=== PATIENT | male | born 1965 | race Caucasian/White ===

== ENCOUNTER 2018-05-22 09:56 | Inpatient (IN) | payer MEDICAID ==
[~2018-05-22] VITALS: Ht 165.1 cm; Wt 59.0 kg
[2018-05-22 09:56] VITALS: BP_SYST 96
--- NOTE | 2018-05-22 10:00 | NUR ---
Patient to ER bed 1 to gown for evaluation. Side rails up. Continuing care as primary nurse.
--- NOTE | 2018-05-22 10:10 | NUR ---
ER Dr. Vinson at bedside examining patient.
--- NOTE | 2018-05-22 10:15 | NUR ---
Pt is non-verbal with autism per his caregiver who is at bedside. Caregiver stated 911 was contacted after Pt was found to be hypertensive: PT's VS stable at time of arrival with no s/s of distress. Caregiver denies any nausea/vomiting, or syncope.
[2018-05-22] MEDS ORDERED: NACL 0.9% 1,000 ML IV ONE ×2 (10:30→11:45)
[2018-05-22 10:56] LABS: HEMOGLOBIN 12.7 g/dL (14.0-18.0); MEAN CORPUSCULAR HEMOGLOBIN 25 pg (27-31); MEAN CORPUSCULAR HGB CONC 31 % (32-36); RED CELL DISTRIBUTION WIDTH 17.5 % (9.0-15.0)
[2018-05-22 11:02] LABS: HEMATOCRIT 40.6 % (36-54); MEAN CORPUSCULAR VOLUME 80 fL (79.0-98.0); PLATELET COUNT (AUTO) 280 K/uL (130-430); RED BLOOD CELL COUNT(AUTO) 5.05 MIL/uL (4.2-6.2); WHITE BLOOD COUNT (AUTO) 23.4 K/uL (4.8-10.8)
[2018-05-22 11:19] LABS: INR 1.1 (0.80-1.20); PROTHROMBIN TIME 11.2 SECS (9.5-12.5)
[2018-05-22 11:22] LABS: ANION GAP 11 (5-15); CALCIUM 8.1 mg/dL (8.4-11.0); CHLORIDE 102 mmol/L (98-107); CREATININE 0.96 mg/dL (0.55-1.30); GLUCOSE 150 mg/dL (70-99); POTASSIUM 3.6 mmol/L (3.5-5.1); SODIUM SERUM 135 mmol/L (136-145); UREA NITROGEN, BLOOD 16 mg/dL (8-21)
[2018-05-22 11:24] LABS: GFR AFRICAN AMERICAN 105 mL/min (>90)
[2018-05-22 11:40] LABS: ALANINE AMINOTRANSFERASE 10 U/L (12-78); ALBUMIN 2.6 g/dL (3.4-4.8); ASPARTATE AMINOTRANSFERASE 12 U/L (10-37); FREE T4 (FREE THYROXINE) 0.7 ng/dL (0.6-1.6); TOTAL BILIRUBIN 0.3 mg/dL (0.0-1.0)
[2018-05-22] MEDS ORDERED: PIPERACILLIN/TAZO 3.375 GM in NS 50 ML IV ONE (11:45)
[2018-05-22] MEDS ORDERED: ESCI10TA PO (11:47)
[2018-05-22] MEDS ORDERED: SENN-104 PO (11:47)
[2018-05-22] MEDS ORDERED: VALP250S3 PO (11:47)
[2018-05-22] MEDS ORDERED: METO25TA6 PO (11:47)
[2018-05-22] MEDS ORDERED: TRAZ-218 PO (11:47)
--- NOTE | 2018-05-22 11:47 | NUR ---
[facility] Any prior medication reconciliation on file was reviewed and corrected.
[2018-05-22 11:52] LABS: BAND % (MANUAL) 14 % (0-6); BASOPHILS % (MANUAL) 0 % (0-2); EOSINOPHILS % (MANUAL) 0 % (0-7); LYMPHOCYTES % (MANUAL) 3 % (20-46); MONOCYTES % (MANUAL) 4 % (0-11)
[2018-05-22 11:56] LABS: ALCOHOL, BLOOD < 3 mg/dL (<10)
[2018-05-22 12:30] LABS: BILIRUBIN,URINE 1+ (NEGATIVE); CLARITY/URINE SL HAZY (CLEAR); COLOR,URINE YELLOW (YELLOW); GLUCOSE,URINE NEGATIVE (NEGATIVE); KETONES,URINE TRACE (NEGATIVE); LEUKOCYTE ESTERASE ,URINE 2+ (NEGATIVE); NITRITE, URINE NEGATIVE (NEGATIVE); PH,URINE >=9.0 (5.0-8.0); PROTEIN URINE 2+ (NEGATIVE)
[2018-05-22 12:33] LABS: BLOOD, URINE TRACE (NEGATIVE)
[2018-05-22] MEDS ORDERED: PIPERACILLIN/TAZOBACTAM 3.375 GM/VIAL (ZOSYN) IV ONE (12:53)
[2018-05-22 13:00] LABS: BACTERIA,URINE MANY /HPF (None Seen); WBC,URINE 20-50 /HPF (0-3)
--- NOTE | 2018-05-22 13:10 | NUR ---
Patient will be admitted to care of Dr Crews. Admitted to Medsurg unit. Belongings list completed. Summary report printed. Report will be given at bedside.
--- NOTE | 2018-05-22 13:16 | NUR ---
ADMISSION NOTE Received patient from ER via [facility], received report from JODIE RN. Patient admitted with diagnosis of FECAL IMPACTION. Patient oriented to hospital routine, call light, toileting and safety-patient verbalized understanding.
[2018-05-22 13:20] VITALS: BP_SYST 96
[2018-05-22 13:33] VITALS: BP_SYST 96
--- NOTE | 2018-05-22 15:34 | NUR ---
PATIENT IS MOVED TO ROOM 113B
[2018-05-22 17:00] VITALS: BP_SYST 120
[2018-05-22] MEDS ORDERED: MORPHINE 4 MG/ML INJ. SYRINGE IVP PRN (17:30)
[2018-05-22] MEDS ORDERED: ACETAMINOPHEN 325 MG TABLET PO PRN (17:30)
[2018-05-22] MEDS: PIPERACILLIN/TAZO 3.375/DEX-IS 50 ML IV SCH (17:55)
[2018-05-22] MEDS: D5NS 1,000 ML IV SCH (17:55)
--- NOTE | 2018-05-22 18:01 | NUR ---
PATIENT IS SEEN EATING DINNER; NO SIGNS OF DISTRESS NOTED.
--- NOTE | 2018-05-22 18:52 | NUR ---
CONSULTATION PAGED/CALLED Reason for Consultation: FECAL IMPACTION Person Who was Notified: LAURO Consulting Physician: DR. ARCE; COMPUTER CONSOLE OPERATOR- DR. HINES Ordering Physician: DR. VILLALOBOS
--- NOTE | 2018-05-22 19:45 | NUR ---
INITIAL NOTE AT INITIAL ASSESSMENT, PATIENT IS RESTING IN BED, STABLE, NO SIGNS OF RESPIRATORY DISTRESS. PATIENT IS NONVERBAL. HE SHOWS NO PAIN PER FLACC SCALE. PLAN OF CARE FOR THE EVENING IS COMMUNICATED WITH THE PATIENT. CALL LIGHT IS WITHIN REACH. BED IS LOCKED, ALARMED, AND AT THE LOWEST LEVEL. FALL, SAFETY, AND SEIZURE PRECAUTIONS WILL BE TAKEN THROUGHOUT THE SHIFT.
[2018-05-22] MEDS ORDERED: VALPROIC ACID ORAL SYRUP 250 MG/5 ML UDC PO ONE (21:00)
[2018-05-22] MEDS ORDERED: VALPROIC ACID ORAL SYRUP 250 MG/5 ML UDC PO SCH (21:00)
[2018-05-22] MEDS ORDERED: POLYETHYLENE GLYCOL 3350, 17 GM/ POWD.PACK PO ONE (21:00)
[2018-05-22] MEDS: traZODone HCL 50 MG TABLET (DESYREL) PO SCH (21:26)
[2018-05-22] MEDS: METOPROLOL TARTRATE 25 MG TABLET PO SCH (21:26)
--- NOTE | 2018-05-22 21:43 | NUR ---
NOTE PATIENT WAS ABLE TO TOLERATE PO MEDICATIONS VERY WELL AT THIS TIME. PATIENT IS RESTING IN BED, STABLE, NO SIGNS OF RESPIRATORY DISTRESS. BED IS LOCKED, ALARMED, AND AT THE LOWEST LEVEL.
--- NOTE | 2018-05-22 23:40 | NUR ---
NOTE PATIENT IS RESTING IN BED, STABLE, NO SIGNS OF RESPIRATORY DISTRESS. BED IS LOCKED, ALARMED, AND AT THE LOWEST LEVEL.
[2018-05-23] MEDS: PIPERACILLIN/TAZO 3.375/DEX-IS 50 ML IV SCH ×6 (00:16→23:43)
--- NOTE | 2018-05-23 00:48 | NUR ---
PAGED PAGED RADAR OPERATOR PHYSICIAN ROSANNA DEL RIO. SPOKE WITH HALEY
--- NOTE | 2018-05-23 01:10 | NUR ---
NOTE PATIENT IS SLEEPING, STABLE, NO SIGNS OF RESPIRATORY DISTRESS. BED IS LOCKED, ALARMED, AND AT THE LOWEST LEVEL.
[2018-05-23] MEDS: D5NS 1,000 ML IV SCH ×3 (01:25→22:33)
[2018-05-23 01:29] VITALS: BP_SYST 114
[2018-05-23] MEDS ORDERED: VALPROIC ACID 250 MG CAPSULE (DEPAKENE) ONE (01:30)
[2018-05-23] MEDS ORDERED: VALPROIC ACID 250 MG CAPSULE (DEPAKENE) PO ONE (01:30)
--- NOTE | 2018-05-23 02:06 | NUR ---
NOTE PATIENT IS SLEEPING, STABLE, NO SIGNS OF RESPIRATORY DISTRESS. BED IS LOCKED, ALARMED, AND AT THE LOWEST LEVEL.
--- NOTE | 2018-05-23 04:00 | NUR ---
NOTE PATIENT IS SLEEPING, STABLE, NO SIGNS OF RESPIRATORY DISTRESS. BED IS LOCKED, ALARMED, AND AT THE LOWEST LEVEL.
--- NOTE | 2018-05-23 05:12 | NUR ---
NOTE PATIENT IS SLEEPING, STABLE, NO SIGNS OF RESPIRATORY DISTRESS. BED IS LOCKED, ALARMED, AND AT THE LOWEST LEVEL.
--- NOTE | 2018-05-23 06:01 | NUR ---
BOWEL MOVEMENT IN COLOSTOMY PATIENT HAS MADE A 500 ML BM IN THIS COLOSTOMY BAG, LOOSE, RUNNY, LIGHT BROWN STOOL. HYGIENE CARE IS PERFORMED AT THIS TIME, PATIENT IS PROVIDED WITH FRESH LINENS. PATIENT TOLERATED WELL. HE IS REPOSITIONED FOR COMFORT, PATIENT IS STABLE, NO SIGNS OF RESPIRATORY DISTRESS. BED IS LOCKED, ALARMED, AND AT THE LOWEST LEVEL.
--- NOTE | 2018-05-23 06:55 | NUR ---
CLOSING NOTE PATIENT SHOWED NO SIGNS OF PAIN PER FLACC SCALE THROUGHOUT THE NIGHT. AT THIS TIME, PATIENT IS RESTING IN BED, STABLE, NO SIGNS OF RESPIRATORY DISTRESS. BED IS LOCKED, ALARMED, AND AT THE LOWEST LEVEL. FALL, SAFETY, AND RESPIRATORY PRECAUTIONS HAVE BEEN IN PLACE THROUGHOUT THE NIGHT. ALL NEEDS MET. WILL CONTINUE TO MONITOR UNTIL SHIFT REPORT IS GIVEN AT BEDSIDE TO AM NURSE.
--- NOTE | 2018-05-23 07:10 | NUR ---
receoved report from ed nurse at the bedside. patient is stable. but non verbal. just nod his head. has iv access on the left ac #22. with iv fluids infusing on well. call lights within reach. has colostomy bag in placed. has loose soft brown stool noted. no pain nor acute distress noted.
--- NOTE | 2018-05-23 07:37 | NUR ---
Nutrition Update Lv Scale 13 noted. Pt admitted for fecal impact Diet: clear liquid diet BMI: 21.6 kg/m2 RD to follow per nutrition care standards.
--- NOTE | 2018-05-23 08:10 | NUR ---
dr ojeda came and evaluate the patient.
[2018-05-23] MEDS ORDERED: POLYETHYLENE GLYCOL 3350, 17 GM/ POWD.PACK PO PRN (08:45)
[2018-05-23] MEDS ORDERED: ESCITALOPRAM OXALATE 10 MG TABLET PO SCH (09:00)
[2018-05-23] MEDS: CITALOPRAM HYDROBROMIDE 20 MG TABLET PO SCH (09:14)
[2018-05-23] MEDS: METOPROLOL TARTRATE 25 MG TABLET PO SCH ×2 (09:14→21:15)
[2018-05-23] MEDS: VALPROIC ACID 250 MG CAPSULE (DEPAKENE) PO SCH ×3 (09:15→21:10)
--- NOTE | 2018-05-23 09:18 | NUR ---
due medication given. made comfortable.
[2018-05-23 09:19] VITALS: BP_SYST 124
--- NOTE | 2018-05-23 10:00 | NUR ---
am care done. kristan changed many times.
[2018-05-23 11:32] VITALS: BP_SYST 148
--- NOTE | 2018-05-23 12:00 | NUR ---
patient feeder. fed by Chitra Purcell. hob elevated.
--- NOTE | 2018-05-23 14:04 | NUR ---
Dietitian Recommendations *Recommend continuing Soft Low fiber/[place] diet per MD orders. *If PO intake continues <75% by next RD visit, consider ONS Ensure Enlive BID. Please see Nutritional Assessment for details. NURSING HOME, RD
[2018-05-23 15:42] VITALS: BP_SYST 140
--- NOTE | 2018-05-23 15:57 | NUR ---
changed bed with nagsree manager plan. patient incontinent of urine. placed a support bar on the left forearm iv access. made comfortable.
--- NOTE | 2018-05-23 16:01 | NUR ---
colostomy bag had soft loose stool brown in color moderate amount noted.
--- NOTE | 2018-05-23 17:24 | NUR ---
turn to sides. resting.
--- NOTE | 2018-05-23 18:22 | NUR ---
patient stable. respiration even no complained made. iv antibiotic given.
--- NOTE | 2018-05-23 19:19 | NUR ---
ENDORSED TO INCOMING NITE NURSE. ROLAND BERG
[2018-05-23 19:49] VITALS: BP_SYST 137
[2018-05-23] MEDS: traZODone HCL 50 MG TABLET (DESYREL) PO SCH (21:15)
--- NOTE | 2018-05-23 23:42 | NUR ---
NOTE PATIENT IS RESTING IN BED, STABLE, NO SIGNS OF RESPIRATORY DISTRESS. BED IS LOCKED, ALARMED, AND AT THE LOWEST LEVEL.
[2018-05-24 00:38] VITALS: BP_SYST 118
--- NOTE | 2018-05-24 01:40 | NUR ---
NOTE PATIENT IS SLEEPING, STABLE, NO SIGNS OF RESPIRATORY DISTRESS. BED IS LOCKED, ALARMED, AND AT THE LOWEST LEVEL.
--- NOTE | 2018-05-24 03:36 | NUR ---
HYGIENE CARE HYGIENE CARE PROVIDED AT THIS TIME. PATIENT TOLERATED WELL. PATIENT IS RESTING IN BED, STABLE, NO SIGNS OF RESPIRATORY DISTRESS. BED IS LOCKED, ALARMED, AND AT THE LOWEST LEVEL.
--- NOTE | 2018-05-24 05:20 | NUR ---
NOTE PATIENT IS RESTING IN BED, STABLE, NO SIGNS OF RESPIRATORY DISTRESS. BED IS LOCKED, ALARMED, AND AT THE LOWEST LEVEL.
[2018-05-24] MEDS: PIPERACILLIN/TAZO 3.375/DEX-IS 50 ML IV SCH ×2 (05:49→12:24)
[2018-05-24 06:46] LABS: CREATININE 0.72 mg/dL (0.55-1.30); POTASSIUM 3.4 mmol/L (3.5-5.1)
[2018-05-24 06:52] LABS: ALBUMIN 2.1 g/dL (3.4-4.8); TOTAL BILIRUBIN 0.3 mg/dL (0.0-1.0)
[2018-05-24 07:03] LABS: BASOPHILS % (AUTO) 0.2 % (0.0-2.0); EOSINOPHILS % (AUTO) 0.2 % (0.0-4.0); HEMATOCRIT 35.9 % (36-54); HEMOGLOBIN 11.3 g/dL (14.0-18.0); LYMPHOCYTES % (AUTO) 7.3 % (20.5-51.5); MEAN CORPUSCULAR HEMOGLOBIN 26 pg (27-31); MEAN CORPUSCULAR HGB CONC 32 % (32-36); MEAN CORPUSCULAR VOLUME 81 fL (79.0-98.0); MONOCYTES # (AUTO) 1.1 K/uL (0.0-1.0); MONOCYTES % (AUTO) 7.6 % (1.7-9.3); NEUTROPHILS % (AUTO) 84.7 % (40.0-70.0); PLATELET COUNT (AUTO) 256 K/uL (130-430); RED BLOOD CELL COUNT(AUTO) 4.41 MIL/uL (4.2-6.2); WHITE BLOOD COUNT (AUTO) 14.1 K/uL (4.8-10.8)
--- NOTE | 2018-05-24 07:22 | NUR ---
Opening Note patient resting in bed, awake and alert, breathing unlabored on room air, symmetrical chest expansion, HOB elevated, IV site remains patent, no signs of distress, safety precautions remain in place, bedside table and call light within reach, room close to station, bed in lowest position, will continue to monitor patient
[2018-05-24 08:13] VITALS: BP_SYST 129
[2018-05-24] MEDS: VALPROIC ACID 250 MG CAPSULE (DEPAKENE) PO SCH (08:32)
[2018-05-24] MEDS: METOPROLOL TARTRATE 25 MG TABLET PO SCH (08:33)
[2018-05-24] MEDS: CITALOPRAM HYDROBROMIDE 20 MG TABLET PO SCH (08:33)
--- NOTE | 2018-05-24 08:35 | NUR ---
Medication educated patient regarding meds, unable to verbalize understanding, he is awake and alert, calm at this time, tolerated meds well by mouth, no signs of aspiration, he is sitting up in bed, no SOB or distress noted, safety precautions remain in place, bed alarm on, room close to station, will continue to monitor
[2018-05-24] MEDS ORDERED: POLY17PO4 PO (09:24)
[2018-05-24] MEDS: D5NS 1,000 ML IV SCH (09:30)
--- NOTE | 2018-05-24 10:40 | NUR ---
Patient Resting in bed awake and alert, no signs of distress, breathing unlabored and symmetrical, HOB elevated, IV fluids infusing, safety precautions remain in place, will continue to monitor patient
[2018-05-24 11:09] VITALS: BP_SYST 114
--- NOTE | 2018-05-24 12:26 | NUR ---
Antibiotics given at this time, educated patient about meds but unable to verbalize understanding, IV site remains patent, NEWS LIBRARIAN feeding patient at this time, he is calm, no signs of distress at this time, safety precautions in place, room close to station, will continue to monitor
--- NOTE | 2018-05-24 12:46 | NUR ---
Attempted to Reach Kate Lyle regarding patient's DC back to board and care, unable to roller picker, left voicemail
--- NOTE | 2018-05-24 12:49 | NUR ---
Spoke with Roque Merrill , stated she is school administrator at [employer], informed her of patient discharge, she stated she will get back to me regarding patient transport back to [facility], will await call back
[2018-05-24 13:39] VITALS: BP_SYST 114
--- NOTE | 2018-05-24 14:05 | NUR ---
D/C Patient Patient given medication reconciliation form and D/C instructions. Exit Care provided. Patient's caregiver verbalized understanding. Ambulatory with steady gait for discharge to home. Patient in stable condition, ID band removed. IV catheter removed, intact and dressing applied, no active bleeding. Rx of antibiotics and miralax given. Patient's caregiver educated on discharge teaching. All belongings sent with patient.
== END 2018-05-24 14:05 | disposition home or self-care (01) | DRG 720 ==
LOC: SED 09:56 → SMU 12:49
PROVIDERS: ADMIT Internal Medicine Hospice and Palliative Medicine; ATTEND Internal Medicine Hospice and Palliative Medicine
DX: A41.9 Sepsis, unspecified organism (principal); E43 Unspecified severe protein-calorie malnutrition; I95.9 Hypotension, unspecified; F84.0 Autistic disorder; I10 Essential (primary) hypertension; K59.00 Constipation, unspecified; N39.0 Urinary tract infection, site not specified; Z93.3 Colostomy status; Z79.899 Other long term (current) drug therapy
CPT/HCPCS: 36415; 71045; 74018; 80053; 80164-TC; 81000-TC; 83605; 83880; 84439; 84484; 85007; 85025; 85027; 85610-TC; 87040-TC; 87086; 87186-TC; 93005; 96361; 96365; 99285; G0482; J2543; J7030; J7042